=== PATIENT | male | born 1970 | race African-American/Black ===

== ENCOUNTER 2017-10-11 07:29 | Inpatient (IN) | payer MEDICAID ==
[~2017-10-11] VITALS: Ht 175.3 cm; Wt 109.8 kg
[2017-10-11] MEDS ORDERED: ONDANSETRON HCL 4MG/2ML VIAL IV STA (08:01)
[2017-10-11] MEDS ORDERED: MORPHINE SULFATE 4 MG/ML CPJ (NOT FOR IM USE) IV STA (08:01)
[2017-10-11] MEDS ORDERED: SODIUM CHLORIDE 0.9% 250 ML IV ONE (08:03)
[2017-10-11 08:23] LABS: BASOPHILS % 0.5 % (0.0-2.0); EOSINOPHILS % 0.5 % (0.0-5.0); HEMATOCRIT. 39.7 % (42.0-52.0); HEMOGLOBIN. 13.6 g/dL (14.0-18.0); LYMPHOCYTES % 10.5 % (20.0-50.0); MEAN CORPUSCULAR HEMOGLOBIN 32.4 pg (28.0-32.0); MEAN CORPUSCULAR VOLUME 94.3 fL (80.0-94.0); MEAN PLATELET VOLUME 9.2 fl (7.4-10.4); MONOCYTES % 8.7 % (2.0-8.0); NEUTROPHILS % 79.8 % (40.0-76.0); PLATELET 178 x1000/uL (130-400); RED BLOOD CELL COUNT 4.21 mill/uL (4.7-6.1); RED CELL DISTRIBUTION WIDTH 14.3 % (11.6-14.6)
[2017-10-11 08:29] LABS: INR 1.1; PROTHROMBIN TIME 11.4 sec (9.4-11.6)
[2017-10-11 08:30] LABS: CHLORIDE 103 mEq/L (98-107)
[2017-10-11 08:35] LABS: ETHANOL BLOOD < 10 mg/dL
[2017-10-11] MEDS ORDERED: MORPHINE SULFATE 4 MG/ML CPJ (NOT FOR IM USE) IV ONE (11:00)
[2017-10-11] MEDS ORDERED: KETOROLAC 30MG/ML VIAL IV ONE (11:00)
[2017-10-11] MEDS ORDERED: ONDANSETRON HCL 4MG/2ML VIAL IV ONE (11:00)
[2017-10-11 11:24] LABS: CLARITY URINE CLEAR (CLEAR); COLOR URINE DARK YELLOW (YELLOW); KETONES URINE 2+ (NEGATIVE); LEUKOCYTE ESTERASE URINE TRACE (NEGATIVE); NITRITE URINE NEGATIVE (NEGATIVE); OCCULT BLOOD URINE NEGATIVE (NEGATIVE); PROTEIN URINE TRACE (NEGATIVE); SPECIFIC GRAVITY URINE 1.032 (1.005-1.030)
[2017-10-11 11:42] LABS: CANNABINOID URINE SCREEN PRESUMTIVE POSITIVE (NEGATIVE)
[2017-10-11 11:43] LABS: *AMPHETAMINES SCREEN URINE NEGATIVE (NEGATIVE); *BARBITURATES SCREEN URINE NEGATIVE (NEGATIVE); *BENZODIAZEPINES SCREEN URINE NEGATIVE (NEGATIVE); *COCAINE SCREEN URINE NEGATIVE (NEGATIVE); METHADONE URINE SCREEN NEGATIVE (NEGATIVE); OPIATES URINE SCREEN PRESUMTIVE POSITIVE (NEGATIVE); PHENCYCLIDINE URINE SCREEN NEGATIVE (NEGATIVE)
[2017-10-11 13:30] VITALS: BP 101/62
[2017-10-11] MEDS ORDERED: IPRATROPIUM/ALBUTEROL 0.5-3(2.5)MG/3ML NEB INH PRN (15:45)
[2017-10-11] MEDS ORDERED: ALBUTEROL (0.083%) 2.5MG/3ML NEB HHN PRN (15:45)
[2017-10-11] MEDS ORDERED: MORPHINE SULFATE 2 MG/ML CPJ (NOT FOR IM USE) IV PRN (15:45)
[2017-10-11] MEDS ORDERED: ACETAMINOPHEN 650MG/20.3ML UDC GT PRN (15:45)
[2017-10-11] MEDS: LEVETIRACETAM 500MG TABLET PO SCH ×2 (15:45→20:46)
[2017-10-11] MEDS ORDERED: HYDROCODONE/ACETAMINOPHEN 5/325MG TABLET PO PRN (15:45)
[2017-10-11] MEDS ORDERED: ACETAMINOPHEN 325MG TABLET PO PRN (15:45)
[2017-10-11 16:00] VITALS: BP 127/61
[2017-10-11] MEDS: ALBUTEROL (0.083%) 2.5MG/3ML NEB HHN SCH ×2 (16:00→20:00)
[2017-10-11] MEDS ORDERED: ASPI-1159 MT (18:36)
[2017-10-11] MEDS ORDERED: DIPH25CA83 PO (18:36)
[2017-10-11] MEDS ORDERED: OMEP20TA2 MT (18:36)
[2017-10-11] MEDS ORDERED: COR6 MT (18:36)
[2017-10-11] MEDS ORDERED: PHEN100C4 PO (18:36)
[2017-10-11] MEDS ORDERED: FOLI-43 MT (18:36)
[2017-10-11] MEDS ORDERED: FURO-151 MT (18:36)
[2017-10-11] MEDS ORDERED: LISI40TA4 MT (18:36)
[2017-10-11] MEDS: SODIUM CHLORIDE 0.9% 1,000 ML IV SCH (18:58)
[2017-10-11 20:00] VITALS: BP 122/64
[2017-10-11] MEDS: HYDROCODONE/ACETAMINOPHEN 10/325MG TABLET PO PRN (20:47)
[2017-10-11] MEDS: SODIUM CHLORIDE 0.9% INJ 3ML FLUSH IVF SCH (20:48)
[2017-10-11] MEDS: ENOXAPARIN 30MG/0.3ML SYR SUBCUT SCH (21:00)
[2017-10-12] VITALS: BP 138/76
[2017-10-12] MEDS: ALBUTEROL (0.083%) 2.5MG/3ML NEB HHN SCH ×6 (01:09→20:00)
[2017-10-12 04:00] VITALS: BP 127/85
[2017-10-12] MEDS: SODIUM CHLORIDE 0.9% INJ 3ML FLUSH IVF SCH ×3 (04:35→20:47)
[2017-10-12] MEDS: HYDROCODONE/ACETAMINOPHEN 10/325MG TABLET PO PRN ×4 (04:36→20:46)
[2017-10-12 06:18] LABS: BASOPHILS % 0.3 % (0.0-2.0); EOSINOPHILS % 2.2 % (0.0-5.0); HEMATOCRIT. 38.1 % (42.0-52.0); HEMOGLOBIN. 12.9 g/dL (14.0-18.0); LYMPHOCYTES % 11.2 % (20.0-50.0); MEAN CORPUSCULAR HEMOGLOBIN 32.1 pg (28.0-32.0); MEAN CORPUSCULAR VOLUME 94.8 fL (80.0-94.0); MEAN PLATELET VOLUME 9.4 fl (7.4-10.4); MONOCYTES % 12.6 % (2.0-8.0); NEUTROPHILS % 73.7 % (40.0-76.0); PLATELET 165 x1000/uL (130-400); RED BLOOD CELL COUNT 4.02 mill/uL (4.7-6.1); RED CELL DISTRIBUTION WIDTH 14.2 % (11.6-14.6)
[2017-10-12 07:38] LABS: CHLORIDE 103 mEq/L (98-107)
[2017-10-12 07:48] LABS: LDL CHOLESTEROL 109 mg/dL (5-100)
[2017-10-12 07:49] LABS: HDL CHOLESTEROL 77 mg/dL (40-59)
[2017-10-12 08:00] VITALS: BP 103/56
[2017-10-12] MEDS: LEVETIRACETAM 500MG TABLET PO SCH ×2 (09:01→20:46)
[2017-10-12] MEDS: ENOXAPARIN 30MG/0.3ML SYR SUBCUT SCH ×2 (09:02→20:56)
[2017-10-12] MEDS: SODIUM CHLORIDE 0.9% 1,000 ML IV SCH (11:53)
[2017-10-12] MEDS ORDERED: BISACODYL 5MG TABLET PO NR (16:15)
[2017-10-12] MEDS ORDERED: MAGNESIUM CITRATE 300ML SOLUTION PO NR (16:15)
[2017-10-12 20:00] VITALS: BP 111/61
[2017-10-12] MEDS ORDERED: ATORVASTATIN CALCIUM 10MG TABLET PO SCH (21:00)
[2017-10-13] VITALS: BP 110/53
[2017-10-13] MEDS: ALBUTEROL (0.083%) 2.5MG/3ML NEB HHN SCH ×2 (01:45→05:30)
[2017-10-13] MEDS: HYDROCODONE/ACETAMINOPHEN 10/325MG TABLET PO PRN (03:22)
[2017-10-13 03:30] VITALS: BP 103/58
[2017-10-13] MEDS: SODIUM CHLORIDE 0.9% INJ 3ML FLUSH IVF SCH (05:37)
[2017-10-13] MEDS: SODIUM CHLORIDE 0.9% 1,000 ML IV SCH (05:37)
[2017-10-13 06:48] LABS: HEMOGLOBIN. 12.2 g/dL (14.0-18.0); MEAN CORPUSCULAR VOLUME 94.5 fL (80.0-94.0); MEAN PLATELET VOLUME 9.5 fl (7.4-10.4); PLATELET 175 x1000/uL (130-400); RED BLOOD CELL COUNT 3.81 mill/uL (4.7-6.1); RED CELL DISTRIBUTION WIDTH 14.1 % (11.6-14.6)
[2017-10-13 06:59] LABS: CHLORIDE 103 mEq/L (98-107)
[2017-10-13 08:00] VITALS: BP 120/64
[2017-10-13 08:04] VITALS: BP 120/64
[2017-10-13 10:15] LABS: PLATELET ESTIMATE NORMAL
== END 2017-10-13 08:40 | disposition home or self-care (01) | DRG 282 ==
LOC: ER 07:29 → EDBEDREQ 10:00 → ENRESERV 12:05 → 5WST 12:05
PROVIDERS: ADMIT Family Medicine; ATTEND Family Medicine
DX: K85.90 Acute pancreatitis without necrosis or infection, unspecified (principal); I11.0 Hypertensive heart disease with heart failure; I50.9 Heart failure, unspecified; J44.9 Chronic obstructive pulmonary disease, unspecified; K83.8 Other specified diseases of biliary tract; K59.00 Constipation, unspecified; Z79.891 Long term (current) use of opiate analgesic; Z87.891 Personal history of nicotine dependence; Z79.82 Long term (current) use of aspirin; Z79.899 Other long term (current) drug therapy
CPT/HCPCS: 36415; 71045; 74176; 74181; 76705; 80048; 80053; 80061; 80305; 81003; 83690; 83880; 84484; 85025; 85610; 93005; 93306; 93970; 96360; 96375; 96376; 99285; G0482; J1650; J1885; J2270; J2405; J7030; J7050; J7611

== ENCOUNTER 2018-10-08 10:51 | Emergency (ER) | payer MEDICAID ==
[~2018-10-08] VITALS: Ht 182.9 cm; Wt 94.0 kg
[~2018-10-08 10:51] MED LIST: ASPI-1159 MT; COR6 MT; DIPH25CA83 PO; FOLI-43 MT; FURO-151 MT; LISI40TA4 MT; OMEP20TA2 MT; PHEN100C4 PO
[2018-10-08] MEDS ORDERED: CEPHALEXIN 250MG CAPSULE PO ONE (14:45)
[2018-10-08] MEDS ORDERED: IBUPROFEN 800MG TABLET PO ONE (14:45)
[2018-10-08 15:49] VITALS: BP 113/60
== END 2018-10-08 15:54 | disposition home or self-care (01) ==
LOC: ER 10:51
DX: L03.116 Cellulitis of left lower limb (principal); J44.9 Chronic obstructive pulmonary disease, unspecified; E11.9 Type 2 diabetes mellitus without complications; I50.9 Heart failure, unspecified; Z79.82 Long term (current) use of aspirin; Z79.899 Other long term (current) drug therapy
CPT/HCPCS: 99283

== ENCOUNTER 2023-10-24 16:20 | Inpatient (IN) | payer MEDICAID ==
[~2023-10-24] VITALS: Ht 182.9 cm; Wt 110.7 kg
[~2023-10-24 16:20] MED LIST changes: +APIX5TAB MT; -ASPI-1159 MT; +ASPI-1497 MT; -DIPH25CA83 PO; +LISI40TA13 MT; -LISI40TA4 MT; -OMEP20TA2 MT; +OMEP20TA23 MT; +P20 PO; +SPIR25TA6 MT
[2023-10-24 16:33] VITALS: O2SAT 86
[2023-10-24] MEDS ORDERED: VANCOMYCIN 1G PREMIX 200 ML IV ONE (16:45)
[2023-10-24] MEDS: SODIUM CHLORIDE 0.9% 1000ML BAG (SEPSIS BOLUS) IV ONE (17:46)
[2023-10-24] MEDS: MORPHINE SULFATE 4 MG/ML INJ (FOR IV/IM USE) IV ONE (17:47)
[2023-10-24 17:51] LABS: BASOPHILS % 0.4 % (0.0-2.0); EOSINOPHILS % 2.4 % (0.0-5.0); HEMATOCRIT. 39.5 % (42.0-52.0); HEMOGLOBIN. 12.9 g/dL (14.0-18.0); LYMPHOCYTES % 12.5 % (20.0-50.0); MEAN CORPUSCULAR HGB CONC 32.6 g/dL (31.0-37.0); MEAN CORPUSCULAR VOLUME 82.8 fL (80.0-94.0); MEAN PLATELET VOLUME 8.4 fl (7.4-10.4); MONOCYTES % 5.9 % (2.0-8.0); NEUTROPHILS % 78.8 % (40.0-76.0); PLATELET 263 x1000/uL (130-400); RED BLOOD CELL COUNT 4.76 mill/uL (4.7-6.1); RED CELL DISTRIBUTION WIDTH 18.2 % (11.6-14.6); WHITE BLOOD COUNT 5.6 x1000/uL (4.5-11.0)
[2023-10-24] MEDS: LORAZEPAM 2MG/ML INJ IV ONE (17:52)
[2023-10-24 17:53] LABS: CHLORIDE 107 mEq/L (98-107); POTASSIUM 4.1 mEq/L (3.5-5.1); SODIUM 142 mEq/L (136-145)
[2023-10-24 17:54] LABS: CALCIUM 8.6 mg/dL (8.7-10.4); CARBON DIOXIDE 26 mEq/L (21-32)
[2023-10-24 17:57] LABS: INR 1.4; PROTHROMBIN TIME 15.1 sec (9.6-11.0)
[2023-10-24] MEDS: PIPERACILLIN/TAZO 3.375G/50ML 50 ML IV ONE (17:57)
[2023-10-24 17:59] LABS: AMMONIA < 17 uMol/L (<32); GLUCOSE 78 mg/dL (70-105); TROPONIN I HIGH SENSITIVITY 39 ng/L (3.0-53); UREA NITROGEN BLOOD 19 mg/dL (9-23)
[2023-10-24 18:00] LABS: CREATININE 1.4 mg/dL (0.6-1.3); ETHANOL BLOOD < 10 mg/dL (<10); LACTATE DEHYDROGENASE 198 IU/L (120-246)
[2023-10-24 18:01] LABS: ALANINE AMINOTRANSFERASE < 7 IU/L (10-49); ALBUMIN 3.6 g/dL (3.2-4.8); ASPARTATE AMINOTRANSFERASE 15 IU/L (<34); BILIRUBIN DIRECT 0.9 mg/dL (<=3.0); BILIRUBIN TOTAL 1.7 mg/dL (0.1-1.0); CREATINE KINASE 105 IU/L (46-171); PROTEIN TOTAL 6.8 g/dL (6.0-8.3)
[2023-10-24 18:15] LABS: BG BASE EXCESS -0.2 mmol/L (-2.0-2.0); BG CARBOXYHEMOGLOBIN 1.3 % (0.5-1.5); BG FRACTION INSPIRED OXYGEN 40; BG HCO3 ACT 23.9 mmol/L (22.0-26.0); BG METHEMOGLOBIN 0.3 % (0.0-1.5); BG OXYHEMOGLOBIN 95.4 % (94.0-97.0); BG PCO2 37.5 mmHg (35.0-45.0); BG PH 7.423 (7.350-7.450); BG PO2 94.8 mmHg (75.0-100.0); BG SAMPLE SITE LEFT RADIAL; BG TOTAL HEMOGLOBIN 13.7 g/dL (12.0-18.0); BG VENT MODE NASAL CANNULA
[2023-10-24] MEDS: NALOXONE HCL 0.4MG/ML 1ML VIAL IV ONE (18:27)
[2023-10-24 18:55] LABS: CLARITY URINE CLEAR (CLEAR); COLOR URINE DARK YELLOW (YELLOW); GLUCOSE URINE NEGATIVE (NEGATIVE); KETONES URINE TRACE (NEGATIVE); LEUKOCYTE ESTERASE URINE TRACE (NEGATIVE); NITRITE URINE NEGATIVE (NEGATIVE); OCCULT BLOOD URINE NEGATIVE (NEGATIVE); PH URINE 5.5 (4.5-8.0); PROTEIN URINE 1+ (NEGATIVE); SPECIFIC GRAVITY URINE 1.029 (1.005-1.030)
[2023-10-24 19:40] LABS: BACTERIA URINE TRACE; RBC URINE NONE SEEN /hpf (0-2); SQUAMOUS EPITHELIAL CELL URINE FEW /lpf (RARE/1+); WBC URINE 0-2 /hpf (0-2)
[2023-10-24 19:51] LABS: *AMPHETAMINES SCREEN URINE PRESUMPTIVE POSITIVE (NEGATIVE); *BARBITURATES SCREEN URINE NEGATIVE (NEGATIVE); *BENZODIAZEPINES SCREEN URINE NEGATIVE (NEGATIVE); *COCAINE SCREEN URINE NEGATIVE (NEGATIVE); METHADONE URINE SCREEN NEGATIVE (NEGATIVE); OPIATES URINE SCREEN PRESUMPTIVE POSITIVE (NEGATIVE); PHENCYCLIDINE URINE SCREEN NEGATIVE (NEGATIVE)
[2023-10-24 19:52] LABS: CANNABINOID URINE SCREEN PRESUMPTIVE POSITIVE (NEGATIVE); ECSTASY MDMA SCREEN URINE CONF.TEST INDICATED (NEGATIVE)
[2023-10-24] MEDS: VANCOMYCIN 1G PREMIX 200 ML IV NR (20:14)
[2023-10-24] MEDS ORDERED: CLONIDINE 0.1MG TABLET PO PRN (21:15)
[2023-10-24] MEDS ORDERED: GUAIFENESIN 200MG/10ML SUGAR FREE UDC PO PRN (21:15)
[2023-10-24] MEDS ORDERED: IPRATROPIUM/ALBUTEROL 0.5-3(2.5)MG/3ML NEB HHN PRN (21:15)
[2023-10-24] MEDS ORDERED: PIPERACILLIN/TAZOBACTAM 3.375 G in DEXTROSE 5% WATER 50 ML IV SCH (21:15)
[2023-10-24] MEDS ORDERED: ONDANSETRON HCL 4MG/2ML INJ IV PRN (21:15)
[2023-10-24] MEDS ORDERED: DOCUSATE SODIUM 100MG CAPSULE PO PRN (21:15)
[2023-10-24] MEDS ORDERED: MAGNESIUM/ALUMINUM HYDROXIDE/SIMETHICONE 30ML UDC PO PRN (21:15)
[2023-10-24 22:05] LABS: IRON 14 ug/dL (65-175)
[2023-10-24 22:08] LABS: CREATINE KINASE 73 IU/L (46-171); PHOSPHORUS 2.9 mg/dL (2.5-4.9); TOTAL IRON BINDING CAPACITY 200 ug/dl (250-425); TROPONIN I HIGH SENSITIVITY 42 ng/L (3.0-53)
[2023-10-24 22:11] LABS: FERRITIN 35 ng/mL (22-322); VITAMIN B12 SERUM 455 pg/mL (211-911)
[2023-10-24 23:10] LABS: LACTATE DEHYDROGENASE 200 IU/L (120-246)
[2023-10-24 23:30] VITALS: BP 98/61; PULSE 110; RESP 22; TEMP 101.1
[2023-10-25] VITALS: BP 112/75; PULSE 90; RESP 18; TEMP 98
[2023-10-25] MEDS ORDERED: PIPERACILLIN/TAZO 3.375G/50ML IV SCH
[2023-10-25] MEDS: MAGNESIUM 2 G PREMIX 50 ML IV NR ×2 (01:06→04:34)
[2023-10-25] MEDS: FUROSEMIDE 40MG/4ML VIAL IVP NR (01:06)
[2023-10-25 04:00] VITALS: BP_SYST 108; BP_SYST 127; BP_DIAS 70; BP_DIAS 72; PULSE 99; RESP 17; RESP 20; TEMP 100; TEMP 97.7
[2023-10-25] MEDS: MORPHINE SULFATE 2 MG/ML CPJ (NOT FOR IM USE) IV NR (04:30)
[2023-10-25] MEDS: INSULIN LISPRO 100 UNITS/ML SUBCUT SCH (06:28)
[2023-10-25] MEDS: BLOOD SUGAR DIAGNOSTIC STRIP TEST SCH (06:28)
[2023-10-25] MEDS: DEXTROSE 50% WATER 50ML SYRINGE IV PRN (06:29)
[2023-10-25 06:47] LABS: MEAN CORPUSCULAR HEMOGLOBIN 26.3 pg (28.0-32.0); MEAN CORPUSCULAR HGB CONC 31.7 g/dL (31.0-37.0); MEAN PLATELET VOLUME 8.6 fl (7.4-10.4); PLATELET 237 x1000/uL (130-400); RED BLOOD CELL COUNT 4.93 mill/uL (4.7-6.1); RED CELL DISTRIBUTION WIDTH 18.2 % (11.6-14.6); WHITE BLOOD COUNT 13.9 x1000/uL (4.5-11.0)
[2023-10-25 06:50] LABS: DIFFERENTIAL COMMENT 1
[2023-10-25 07:59] LABS: CHLORIDE 107 mEq/L (98-107); POTASSIUM 4.6 mEq/L (3.5-5.1); SODIUM 142 mEq/L (136-145)
[2023-10-25 08:00] VITALS: BP 102/58; PULSE 96; RESP 22; TEMP 97.1
[2023-10-25 08:00] LABS: CALCIUM 8.7 mg/dL (8.7-10.4); CARBON DIOXIDE 19 mEq/L (21-32)
[2023-10-25] MEDS ORDERED: VANCOMYCIN 750MG/150ML IV SCH (08:00)
[2023-10-25 08:03] LABS: TROPONIN I HIGH SENSITIVITY 30 ng/L (3.0-53)
[2023-10-25 08:05] LABS: CREATININE 1.4 mg/dL (0.6-1.3); TRIGLYCERIDE 42 mg/dL (0-150); UREA NITROGEN BLOOD 15 mg/dL (9-23)
[2023-10-25 08:06] LABS: LDL CHOLESTEROL 31 mg/dL (5-100)
[2023-10-25 08:07] LABS: CHOLESTEROL 84 mg/dL (<200); CREATINE KINASE 82 IU/L (46-171); HDL CHOLESTEROL 37 mg/dL (>55); T4 FREE 0.98 ng/dL (0.89-1.76); THYROID STIMULATING HORMONE 0.75 uIU/mL (0.55-4.78)
[2023-10-25] MEDS ORDERED: LEVOFLOXACIN 750MG PREMIX 150 ML IV SCH (08:15)
[2023-10-25] MEDS: PANTOPRAZOLE SODIUM 40 MG/VIAL IV SCH (08:19)
[2023-10-25] MEDS: SPIRONOLACTONE 12.5MG TABLET PO SCH (08:27)
[2023-10-25] MEDS: FUROSEMIDE 40MG/4ML VIAL IVP SCH (08:42)
[2023-10-25 08:51] LABS: GLUCOSE 34 mg/dL (70-105)
[2023-10-25] MEDS ORDERED: FUROSEMIDE 40MG TABLET PO SCH (09:00)
[2023-10-25] MEDS: SODIUM BICARBONATE 650 MG TABLET PO SCH (09:45)
[2023-10-25] MEDS: LEVOFLOXACIN 500MG PREMIX 100 ML IV SCH (10:00)
[2023-10-25] MEDS: LEVOFLOXACIN 250MG PREMIX 50 ML IV SCH (11:04)
[2023-10-25 12:00] VITALS: BP 100/60; PULSE 89; RESP 17; TEMP 97
[2023-10-25] MEDS: ACETAMINOPHEN 325MG TABLET PO PRN (13:16)
[2023-10-25] MEDS: VANCOMYCIN 1.25GM PMX (XELLIA) 250 ML IV SCH (13:39)
[2023-10-25 15:13] LABS: ANISOCYTOSIS 2+; PLATELET ESTIMATE NORMAL
[2023-10-25 16:00] VITALS: BP 99/56; PULSE 100; RESP 22; TEMP 96.6
[2023-10-25 20:00] VITALS: BP 117/61; PULSE 107; RESP 15; TEMP 98
[2023-10-26] VITALS: BP 93/54; PULSE 114; RESP 16; TEMP 98
[2023-10-26] MEDS: MORPHINE SULFATE 2 MG/ML CPJ (NOT FOR IM USE) IV NR (03:26)
[2023-10-26 04:00] VITALS: BP 117/64; PULSE 105; RESP 16; TEMP 97.3
[2023-10-26 07:59] LABS: CARBON DIOXIDE 26 mEq/L (21-32); CHLORIDE 106 mEq/L (98-107); HEMATOCRIT. 37.4 % (42.0-52.0); MEAN CORPUSCULAR HEMOGLOBIN 26.1 pg (28.0-32.0); MEAN CORPUSCULAR HGB CONC 32.2 g/dL (31.0-37.0); MEAN PLATELET VOLUME 8.5 fl (7.4-10.4); PLATELET 215 x1000/uL (130-400); POTASSIUM 3.8 mEq/L (3.5-5.1); RED BLOOD CELL COUNT 4.61 mill/uL (4.7-6.1); RED CELL DISTRIBUTION WIDTH 17.9 % (11.6-14.6); SODIUM 139 mEq/L (136-145); WHITE BLOOD COUNT 11.9 x1000/uL (4.5-11.0)
[2023-10-26 08:00] VITALS: BP 110/70; PULSE 110; RESP 20; TEMP 98
[2023-10-26 08:00] LABS: CALCIUM 8.3 mg/dL (8.7-10.4)
[2023-10-26 08:05] LABS: CREATININE 1.2 mg/dL (0.6-1.3); GLUCOSE 75 mg/dL (70-105); UREA NITROGEN BLOOD 23 mg/dL (9-23)
[2023-10-26 08:07] LABS: PHOSPHORUS 2.4 mg/dL (2.5-4.9)
[2023-10-26 08:21] LABS: DIFFERENTIAL COMMENT 1
[2023-10-26] MEDS ORDERED: SODIUM PHOSPHATE 20 MMOL in DEXT 5% WATER 243.3333 ML IV ONE (08:30)
[2023-10-26] MEDS ORDERED: LIDOCAINE HCL 1% 10 MG/ML 10ML VIAL ONE (08:42)
[2023-10-26] MEDS ORDERED: SODIUM BICARBONATE 4% (2.4MEQ) 5ML VIAL IV ONE (08:42)
[2023-10-26 09:40] LABS: LACTATE DEHYDROGENASE 234 IU/L (120-246)
[2023-10-26] MEDS: MAGNESIUM 2 G PREMIX 50 ML IV NR (10:16)
[2023-10-26] MEDS: POTASSIUM PHOSPHATE 20MMOL in DEXT 5% WATER 250ML IV NR (10:16)
[2023-10-26 12:00] VITALS: BP 121/73; PULSE 111; RESP 20; TEMP 98.8
[2023-10-26] MEDS: VANCOMYCIN 1.25GM PMX (XELLIA) 250 ML IV SCH (13:12)
[2023-10-26 13:40] LABS: BODY FLUID MONOCYTES 8 %
[2023-10-26 14:24] LABS: BODY FLUID RBC 35000 /cu mm (0-2000); BODY FLUID WBC 28750 /cu mm (0-200)
[2023-10-26 16:00] VITALS: BP 124/69; PULSE 108; RESP 20; TEMP 98
[2023-10-26 20:00] VITALS: BP 113/61; PULSE 97; RESP 16; TEMP 98.1
[2023-10-26 20:59] LABS: PLATELET ESTIMATE NORMAL
[2023-10-27] VITALS: BP 122/56; PULSE 101; RESP 18; TEMP 97.1
[2023-10-27 04:00] VITALS: BP 103/61; PULSE 108; RESP 16; TEMP 97.5
[2023-10-27 06:14] LABS: CARBON DIOXIDE 27 mEq/L (21-32); CHLORIDE 105 mEq/L (98-107); POTASSIUM 3.8 mEq/L (3.5-5.1); SODIUM 139 mEq/L (136-145)
[2023-10-27 06:15] LABS: CALCIUM 8.2 mg/dL (8.7-10.4)
[2023-10-27 06:18] LABS: BASOPHILS % 0.3 % (0.0-2.0); EOSINOPHILS % 0.8 % (0.0-5.0); HEMOGLOBIN. 11.7 g/dL (14.0-18.0); LYMPHOCYTES % 8.6 % (20.0-50.0); MEAN CORPUSCULAR HEMOGLOBIN 26.5 pg (28.0-32.0); MEAN CORPUSCULAR HGB CONC 32.5 g/dL (31.0-37.0); MEAN CORPUSCULAR VOLUME 81.7 fL (80.0-94.0); MEAN PLATELET VOLUME 8.9 fl (7.4-10.4); MONOCYTES % 14.3 % (2.0-8.0); PLATELET 203 x1000/uL (130-400); RED CELL DISTRIBUTION WIDTH 17.3 % (11.6-14.6); WHITE BLOOD COUNT 9.7 x1000/uL (4.5-11.0)
[2023-10-27 06:19] LABS: CREATININE 1.1 mg/dL (0.6-1.3)
[2023-10-27 06:20] LABS: GLUCOSE 63 mg/dL (70-105); UREA NITROGEN BLOOD 22 mg/dL (9-23)
[2023-10-27 06:22] LABS: PHOSPHORUS 2.3 mg/dL (2.5-4.9)
[2023-10-27 08:00] VITALS: BP 120/66; PULSE 106; RESP 20; TEMP 98
[2023-10-27 12:00] VITALS: BP 113/60; PULSE 113; RESP 22; TEMP 98
[2023-10-27 16:00] VITALS: BP 123/72; PULSE 97; RESP 20; TEMP 99
[2023-10-27] MEDS: CEFTRIAXONE 2GM/50ML 50ML IV SCH (17:01)
[2023-10-27 20:00] VITALS: BP 112/72; RESP 18; TEMP 97.2
[2023-10-27 20:25] LABS: HEPATITIS B SURFACE ANTIGEN NEGATIVE (Negative)
[2023-10-27 20:45] LABS: HEPATITIS A AB IGM NEGATIVE (Negative)
[2023-10-27 20:46] LABS: HEPATITIS B CORE AB IGM NEGATIVE (Negative); HEPATITIS C AB NON REACTIVE (Neg) (Negative)
[2023-10-28] VITALS: BP 120/78; RESP 18; TEMP 98.6
[2023-10-28 04:00] VITALS: BP 98/72; RESP 18; TEMP 97.5
[2023-10-28] MEDS ORDERED: VANCOMYCIN 1.25GM PMX (XELLIA) 250 ML IV SCH (05:00)
[2023-10-28 08:00] VITALS: BP 122/96; PULSE 88; RESP 20; TEMP 97.8
[2023-10-28 12:00] VITALS: BP 95/44; PULSE 86; RESP 20; TEMP 97.8
[2023-10-28] MEDS ORDERED: LIDOCAINE HCL 1% 10 MG/ML 10ML VIAL ONE (13:43)
[2023-10-28 16:00] VITALS: BP 130/57; PULSE 92; RESP 18; TEMP 98.7
[2023-10-28 20:00] VITALS: BP 135/84; PULSE 97; RESP 21; TEMP 99.8
[2023-10-29] VITALS: BP 118/71; PULSE 99; RESP 20; TEMP 98.6
[2023-10-29 04:00] VITALS: BP 126/80; PULSE 98; RESP 19; TEMP 98.5
[2023-10-29 08:00] VITALS: BP 134/71; PULSE 113; RESP 18; TEMP 97.8
[2023-10-29] MEDS: FAMOTIDINE 20MG/2ML VIAL IV SCH (09:14)
[2023-10-29 12:00] VITALS: BP 128/77; PULSE 97; RESP 18; TEMP 97.7
[2023-10-29 16:00] VITALS: BP 133/81; PULSE 61; RESP 18; TEMP 97.6
[2023-10-29 20:00] VITALS: BP 133/81; PULSE 101; RESP 19; TEMP 98.9
[2023-10-29] MEDS: MELATONIN 3MG TABLET PO PRN (21:38)
[2023-10-30] VITALS: BP_SYST 126; BP_SYST 127; BP_DIAS 82; BP_DIAS 86; PULSE 113; PULSE 98; RESP 21; RESP 22; TEMP 100.2; TEMP 98.8
[2023-10-30 04:00] VITALS: BP 126/86; PULSE 98; RESP 21; TEMP 98.8
[2023-10-30 08:00] VITALS: BP 126/70; PULSE 60; RESP 18; TEMP 98.8
[2023-10-30] MEDS: KETOROLAC 15MG/ML VIAL IV PRN (08:24)
[2023-10-30 09:38] LABS: CHLORIDE 106 mEq/L (98-107); POTASSIUM 3.4 mEq/L (3.5-5.1); SODIUM 143 mEq/L (136-145)
[2023-10-30 09:39] LABS: CARBON DIOXIDE 30 mEq/L (21-32)
[2023-10-30 09:40] LABS: CALCIUM 8.3 mg/dL (8.7-10.4)
[2023-10-30 09:44] LABS: CREATININE 0.9 mg/dL (0.6-1.3); GLUCOSE 100 mg/dL (70-105)
[2023-10-30 09:45] LABS: UREA NITROGEN BLOOD 14 mg/dL (9-23)
[2023-10-30 09:48] LABS: MEAN CORPUSCULAR HEMOGLOBIN 26.1 pg (28.0-32.0); MEAN CORPUSCULAR HGB CONC 32.3 g/dL (31.0-37.0); MEAN CORPUSCULAR VOLUME 80.7 fL (80.0-94.0); MEAN PLATELET VOLUME 8.5 fl (7.4-10.4); PLATELET 220 x1000/uL (130-400); RED BLOOD CELL COUNT 4.21 mill/uL (4.7-6.1); RED CELL DISTRIBUTION WIDTH 17.7 % (11.6-14.6); WHITE BLOOD COUNT 8.4 x1000/uL (4.5-11.0)
[2023-10-30 09:55] LABS: DIFFERENTIAL COMMENT 1
[2023-10-30 11:37] LABS: ANISOCYTOSIS 2+; TARGET CELLS 1+
[2023-10-30 11:38] LABS: PLATELET ESTIMATE NORMAL
[2023-10-30 12:00] VITALS: BP 122/84; PULSE 101; RESP 20; TEMP 98.7
[2023-10-30] MEDS: POTASSIUM CHLORIDE 20MEQ TABLET SR PO NR (13:39)
[2023-10-30 16:00] VITALS: BP 132/73; PULSE 101; RESP 20; TEMP 98.6
[2023-10-31] VITALS: BP 101/56; PULSE 111; RESP 18; TEMP 97.7
[2023-10-31 04:00] VITALS: BP 118/67; PULSE 113; RESP 18; TEMP 97.7
[2023-10-31 08:00] VITALS: BP 116/72; PULSE 90; RESP 20; TEMP 97.9
[2023-10-31 12:00] VITALS: BP 149/91; PULSE 107; RESP 20; TEMP 98.2
[2023-10-31] MEDS ORDERED: CEFT1VIA15 IV (12:23)
[2023-10-31 16:00] VITALS: BP 128/63; PULSE 78; RESP 20; TEMP 99.2
== END 2023-10-31 20:15 | disposition home health service (06) | DRG 720 ==
LOC: ER 16:20 → EDBEDREQ 18:45 → EDBEDREQTM 18:45 → EDBEDREQSVC 18:45 → 8WST 23:24
PROVIDERS: ADMIT Internal Medicine; ATTEND Internal Medicine
PROC: 0W9G3ZZ Drainage of Peritoneal Cavity, Percutaneous Approach (ICD-10-PCS; 2023-10-26)
PROC: 5A09357 Assistance with Respiratory Ventilation, Less than 24 Consecutive Hours, Continuous Positive Airway Pressure (ICD-10-PCS; 2023-10-26)
PROC: 02HV33Z Insertion of Infusion Device into Superior Vena Cava, Percutaneous Approach (ICD-10-PCS; principal; 2023-10-28)
PROC: B548ZZA Ultrasonography of Superior Vena Cava, Guidance (ICD-10-PCS; 2023-10-28)
DX: A40.8 Other streptococcal sepsis (principal); J96.01 Acute respiratory failure with hypoxia; I50.33 Acute on chronic diastolic (congestive) heart failure; G92.8 Other toxic encephalopathy; R18.8 Other ascites; N17.9 Acute kidney failure, unspecified; E11.649 Type 2 diabetes mellitus with hypoglycemia without coma; G40.909 Epilepsy, unspecified, not intractable, without status epilepticus; I11.0 Hypertensive heart disease with heart failure; D64.9 Anemia, unspecified; J44.89 Other specified chronic obstructive pulmonary disease; N39.0 Urinary tract infection, site not specified; I25.10 Atherosclerotic heart disease of native coronary artery without angina pectoris; F17.210 Nicotine dependence, cigarettes, uncomplicated; E83.42 Hypomagnesemia; E78.5 Hyperlipidemia, unspecified; N43.3 Hydrocele, unspecified; Z79.899 Other long term (current) drug therapy
CPT/HCPCS: 36415; 36573; 36600; 49083; 71045; 74018; 74176; 80048; 80061; 80076; 80202; 80305; 80320; 81003; 82040; 82140; 82375; 82550; 82607; 82728; 82746; 82805; 82962; 83036; 83540; 83550; 83605; 83615; 83735; 83880; 83986; 84100; 84145; 84439; 84443; 84484; 85025; 86705; 86709; 87186; 87340; 93005; 93306; 93923; 93970; 97162; 97166; 97530; 97535; 99291; C1725; C9113; J0696; J1815; J1885; J1940; J1956; J2060; J2270; J2310; J2543; J3370; J3475; J3490; J7030; J7060; G0480